=== PATIENT | male | born 1970 | race Caucasian/White ===

== ENCOUNTER 2016-12-23 11:58 | Emergency (ER) | payer SELFPAY ==
[~2016-12-23] VITALS: Ht 182.9 cm; Wt 72.5 kg
[2016-12-23 11:59] VITALS: BP 149/88; PULSE 100; RESP 20; TEMP 98.6; O2SAT 95
--- NOTE | 2016-12-23 12:13 | PD ---
HPI . right shoulder pain since 4 am Chief Complaint: Pain: Acute or Chronic Time Seen by Provider: 12:13 Travel History International Travel<30 days: No Contact w/Intl Traveler<30days: No Traveled to known affect area: No History of Present Illness HPI 46-year-old male with no significant past medical history due to not being able to see a primary care provider here with complaints of right shoulder pain. Patient says that he is not certain what kind of illness he has going on and he usually has some aches and pains, however yesterday he was applying some type of spray to his home and ended up hurting his right shoulder. He reports the pain as 8/10 with movement, at rest 2/10. He tells me that he has very difficult time moving his right shoulder this time. He also has decreased strength in it. He denies any suspected dislocation. He is accompanied by his roommate. PFSH Past Medical History Medical History: Denies Significant Hx Social History Tobacco Use: No Allergies-Medications Reported Meds & Prescriptions Reported Meds & Active Scripts Active Ibuprofen 800 Mg Tab 800 Mg PO TID Flexeril (Cyclobenzaprine HCl) 5 Mg Tab 5 Mg PO TID Review of Systems General / Constitutional: No: Fever Eyes: No: Visual changes HENT: No: Headaches Cardiovascular: No: Chest Pain or Discomfort Respiratory: No: Shortness of Breath Gastrointestinal: No: Abdominal Pain Genitourinary: No: Dysuria Musculoskeletal: Positive: Pain (right shoulder) Skin: No Rash Neurologic: No: Weakness Psychiatric: No: Depression Endocrine: No: Polydipsia Hematologic/Lymphatic: No: Easy Bruising Physical Exam Narrative GENERAL: AAO x 3, no acute distress, Well-nourished, well-developed patient. SKIN: Warm and dry. No visible rashes or bruising. No ecchymosis or edema over the right shoulder. HEAD: Normocephalic and atraumatic. EYES: No scleral icterus. No injection or drainage. ENT: No nasal drainage noted. Mucous membranes pink. Airway patent. NECK: Supple, trachea midline. No JVD. CARDIOVASCULAR: Regular rate and rhythm without murmurs, gallops, or rubs. RESPIRATORY: Breath sounds equal bilaterally. No accessory muscle use. No rhonchi or rales. GASTROINTESTINAL: Abdomen soft, non-tender, nondistended. EXTREMITIES: No cyanosis or edema. Decreased ROM in right shoulder. Decreased ability to abduct. manager code strength normal b/l hands. BACK: No obvious deformity. PSYCH: AAO x 3, normal affect. Data Data Last Documented VS Vital Signs Date Time Temp Pulse Resp B/P Pulse Ox O2 Delivery O2 Flow Rate FiO2 12/23/16 11:59 98.6 100 20 149/88 95 Room Air Orders Shoulder, Complete (>2vws) (12/23/16 12:16) [facility] Medical Decision Making Medical Screen Exam Complete: Yes Emergency Medical Condition: Yes Medical Record Reviewed: Yes Differential Diagnosis acute on chronic pain, rotator cuff injury, AC joint separation, shoulder dislocation, shoulder fracture Narrative Course This is a 46-year-old male with acute right shoulder pain. I've done an examination on him and he does have decreased range of motion and tenderness over the right glenohumeral joint. X-ray ordered to rule out bony abnormality. NO acute abn. Last Impressions Shoulder X-Ray 12/23/16 1216 Signed Impressions: Service Date/Time: Friday, December 23, 2016 12:42 - CONCLUSION: Unremarkable examination of the right shoulder. Royce Kenyon MD I discussed the negative findings with him and his roommate. I advised him that this is likely a rotator cuff injury. I recommend follow-up with his primary care provider. In the meantime I provided him with anti-inflammatories and muscle relaxers. Patient verbalized understanding of instructions, questions were answered, and thanked me for their care. I advised them if their condition worsens, please return to the nearest emergency room for further care. Diagnosis Primary Impression: Right shoulder pain Qualified Code: M25.511 - Acute pain of right shoulder Patient Instructions: General Instructions Additional Instructions: Advised patient to rest, ice, use compression and elevate injured area. Please return to emergency department if your symptoms return or worsen. Follow up with your primary care provider. Take medications as prescribed. Med/Other Pt SpecificInfo: Prescription(s) given Scripts Ibuprofen 800 Mg Fxt097 Mg PO TID #21 TAB Prov:Carter Martínez MD 12/23/16 Cyclobenzaprine (Flexeril)5 Mg Tab5 Mg PO TID #21 TAB Prov:Carter Martínez MD 12/23/16 Disposition: 01 DISCHARGE HOME Condition: Stable Mangali,Beena PA December 23, 2016 12:13
--- NOTE | 2016-12-23 13:05 | RADRPT ---
EXAM DATE/TIME: 12/23/2016 12:42 [facility] COMPARISON: No previous studies available for comparison. INDICATIONS : Right shoulder pain since yesterday. No known injury. MEDICAL HISTORY : None. SURGICAL HISTORY : None. ENCOUNTER: Initial ACUITY: 2 days PAIN SCORE: 8/10 LOCATION: Right lateral shoulder. FINDINGS: Multiple view examination of the right shoulder demonstrates no evidence of fracture or dislocation. The glenohumeral and acromioclavicular joints are maintained. There is normal range of motion betwe en internal and external rotation. Bony mineralization is normal. CONCLUSION: Unremarkable examination of the right shoulder. Royce Kenyon MD on December 23, 2016 at 13:02 Board Certified Radiologist. This report was verified electronically.
[2016-12-23] MEDS ORDERED: IBUP800T23 PO (13:21)
[2016-12-23] MEDS ORDERED: CYCL5TAB PO (13:21)
== END 2016-12-23 13:56 | disposition home or self-care (01) ==
LOC: NEPK 11:58
DX: M25.511 Pain in right shoulder (principal)
CPT/HCPCS: 73030; 99283